=== PATIENT | female | born 1995 | race African-American/Black ===

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

== ENCOUNTER 2017-07-18 20:09 | Emergency (ER) | payer MEDICAID, OTHER ==
[~2017-07-18] VITALS: Ht 149.9 cm; Wt 55.0 kg
[~2017-07-18 20:09] MED LIST changes: -HYDR-3533 PO; +PERC5TAB12 PO
[2017-07-18 20:12] VITALS: BP 107/66; PULSE 78; RESP 16; TEMP 98.1; O2SAT 99
[2017-07-19] MEDS ORDERED: METR-1 PO (21:10)
== END 2017-07-18 22:10 | disposition left against medical advice (07) ==
LOC: NED 20:09
DX: N94.9 Unspecified condition associated with female genital organs and menstrual cycle (principal)
CPT/HCPCS: 99281

== ENCOUNTER 2017-07-19 18:57 | Emergency (ER) | payer MEDICAID ==
[~2017-07-19] VITALS: Ht 149.9 cm; Wt 55.0 kg
[2017-07-19 18:57] VITALS: BP 124/76; PULSE 66; RESP 16; TEMP 98.5; O2SAT 100
--- NOTE | 2017-07-19 20:19 | PD ---
HPI Chief Complaint: Heel Cutter Problem/Complaint Time Seen by Provider: 20:01 Travel History International Travel<30 days: No Contact w/Intl Traveler<30days: No Traveled to known affect area: No History of Present Illness HPI 22-year-old female with no significant medical history presents to emergency department for evaluation of vaginal itching and discharge worsening over the last week. Patient states she has 2 sexual partners. She does not use reduction with either of them. She reports mild lower abdominal pain. No urinary symptoms. No other symptoms to report. PFSH Past Medical History Medical History: Denies Significant Hx Weight (Kg): 3 Cardiovascular Problems: No Developmental Delay: No Diabetes: No Diminished Hearing: No Gastrointestinal Disorders: Yes ("gallstones") Headaches: Yes (at times had a head injury with sutures December 2013) Psychiatric: Yes Immunizations Current: Yes Seizures: No Tetanus Vaccination: < 5 Years Influenza Vaccination: Yes ?: Not LMP: 07/15/17 Menopausal: No : 2 Para: 1 Miscarriage: 1 Past Surgical History Cholecystectomy: Yes Other Surgery: No Social History Alcohol Use: Yes Tobacco Use: Yes Substance Use: No Allergies-Medications (Allergen,Severity, Reaction): Coded Allergies: No Known Allergies (Verified , 07/19/17) Reported Meds & Prescriptions Reported Meds & Active Scripts Active Percocet (Oxycodone-Acetaminophen) 5-325 mg Tab 1 Tab PO Q4H PRN Review of Systems Except as stated in HPI: all other systems reviewed are Neg Physical Exam Narrative GENERAL: Well-nourished female patient, in no acute distress SKIN: Focused skin assessment warm/dry. HEAD: Atraumatic. Normocephalic. EYES: Pupils equal and round. No scleral icterus. No injection or drainage. ENT: No nasal bleeding or discharge. Mucous membranes pink and moist. NECK: Trachea midline. No JVD. CARDIOVASCULAR: Regular rate and rhythm. No murmur appreciated. RESPIRATORY: No accessory muscle use. Clear to auscultation. Breath sounds equal bilaterally. GASTROINTESTINAL: Abdomen soft, non-tender, nondistended. Hepatic and splenic margins not palpable. GENITOURINARY: Normal external genitalia without lesions or erythema. Vaginal vault thick white malodorous discharge. Cervical os was closed with white drainage. No cervical motion tenderness. Uterus nontender and nonenlarged. Bilateral adnexa nontender without masses. MUSCULOSKELETAL: No obvious deformities. No clubbing. No cyanosis. No edema. NEUROLOGICAL: Awake and alert. No obvious cranial nerve deficits. Motor grossly within normal limits. Normal speech. Data Data Last Documented VS Vital Signs Date Time Temp Pulse Resp B/P (MAP) Pulse Ox O2 Delivery O2 Flow Rate FiO2 07/19/17 18:57 98.5 66 16 124/76 (92) 100 Room Air Orders Orders Ceftriaxone Inj (Rocephin Inj) (07/19/17 20:30) Azithromycin (Zithromax) (07/19/17 20:30) Lidocaine 1% Inj (50 Ml) (Xylocaine 1% I (07/19/17 20:30) Wet Prep Profile (07/19/17 20:20) Urinalysis - C+S If Indicated (07/19/17 20:20) Gc And Chlamydia Pcr (07/19/17 20:20) Ed Urine Pregnancytest Poc (07/19/17 20:21) Lidocaine Pf 1% Inj (Xylocaine-Mpf 1% In (07/19/17 20:25) Urine Culture (07/19/17 20:00) Labs Laboratory Tests Test 07/19/17 20:00 07/19/17 20:25 Urine Color YELLOW Urine Turbidity HAZY Urine pH 6.0 Urine Specific Vinson 1.035 Urine Protein 30 mg/dL Urine Glucose (UA) NEG mg/dL Urine Ketones 10 mg/dL Urine Occult Blood NEG Urine Nitrite NEG Urine Bilirubin NEG Urine Urobilinogen 4.0 MG/DL Urine Leukocyte Esterase LARGE Urine RBC 14 /hpf Urine WBC 23 /hpf Urine Squamous Epithelial Cells 21 /hpf Urine Amorphous Sediment RARE Urine Bacteria FEW /hpf Urine Mucus MANY /lpf Microscopic Urinalysis Comment CULTURE INDICATED Clue Cells (Wet Prep) PRESENT Vaginal Trichomonas (Wet Prep) NONE SEEN Vaginal Yeast (Wet Prep) NONE SEEN MDM Medical Decision Making Medical Screen Exam Complete: Yes Emergency Medical Condition: Yes Medical Record Reviewed: Yes Differential Diagnosis BV versus STD versus UTI versus PID Narrative Course 22 year-old female presents to the emergency department for evaluation of vaginal itching and discharge. Patient does have a thick white-yellow discharge in her vaginal vault. No CMT. Patient does have 2 sexual partners and does not utilize, prophylaxis. She'll be treated per [facility]. Blood prepped and show clue cells. She'll be treated for BV as well. She is counseled on safe sex practices. Encouraged to follow-up with gynecology. She agrees to return immediately with any acute worsening of symptoms.. Diagnosis Primary Impression: Bacterial vaginosis Additional Impression: Vaginal discharge Referrals: [facility] [employer] Superintendent Primary Care Physician Patient Instructions: Bacterial Vaginosis (ED), General Instructions, Safe Sex (ED) Additional Instructions: It is important that you utilize condom prophylaxis Follow-up with a outpatient clerk You have been treated for gonorrhea and chlamydia. You'll receive a letter in the mail if this is indeed positive. You have not been tested for any other STDs Return immediately to the emergency department with any acute worsening of symptoms. Med/Other Pt SpecificInfo: Prescription(s) given Scripts Metronidazole (Flagyl) 500 Mg Tab 500 MG PO BID for Infection for 7 Days, #14 TAB 0 Refills Prov: Elsa Red 07/19/17 Disposition: 01 DISCHARGE HOME Condition: Stable Elsa Red Jul 19, 2017 20:19
[2017-07-19] MEDS ORDERED: LIDOCAINE HCL 1% PF 30 ML VIAL ONE (20:25)
[2017-07-19] MEDS ORDERED: cefTRIAXone 250 MG VIAL IM ONE (20:30)
[2017-07-19] MEDS ORDERED: AZITHROMYCIN 250 MG TAB PO ONE (20:30)
[2017-07-19] MEDS ORDERED: LIDOCAINE HCL 1% 50 ML VIAL XX ONE (20:30)
[2017-07-19 20:55] LABS: BACTERIA, URINE FEW /hpf; BLOOD, URINE NEG (NEG); COMMENT (UR) CULTURE INDICATED; CULTURE IF INDICATED CULTURE INDICATED; GLUCOSE,URINE NEG (NEG); KETONE, URINE 10 mg/dL (NEG); MUCUS URINE MANY /lpf (OCC); NITRITE,URINE NEG (NEG); SQUAMOUS EPITHELIAL CELL URINE 21 /hpf (0-5); URINE COLOR YELLOW (YELLW/STRAW)
[2017-07-19] MEDS ORDERED: METR-1 PO (21:10)
[2017-07-19 23:08] LABS: CHLAMYDIA PCR NOT DETECTED (NOT DETECT); NEISSERIA PCR NOT DETECTED (NOT DETECT)
== END 2017-07-19 21:40 | disposition home or self-care (01) ==
LOC: NEPD 18:57
DX: N76.0 Acute vaginitis (principal); B96.89 Other specified bacterial agents as the cause of diseases classified elsewhere; Z72.0 Tobacco use
CPT/HCPCS: 81001; 84703; 87086; 87210; 87491; 87591; 96372; 99284; J0696

== ENCOUNTER 2018-01-30 12:32 | Observation (INO) | payer MEDICAID ==
[~2018-01-30] VITALS: Ht 149.9 cm; Wt 55.0 kg
[~2018-01-30 12:32] MED LIST changes: +METR-1 PO
[2018-01-30] MEDS ORDERED: IOHEXOL 350 MG/ML 10 ML VIAL (for RAD DIAG) IVCONTRAST ONE (12:33)
[2018-01-30 12:43] VITALS: BP 128/72; PULSE 82; RESP 18; TEMP 98.2; O2SAT 100
[2018-01-30 13:22] LABS: AUTOMATED NEUTROPHIL # 4.4 TH/MM3 (1.8-7.7); BASOPHIL # 0.1 TH/MM3 (0-0.2); BASOPHIL % 2.2 % (0.0-2.0); EOSINOPHIL # 0.2 TH/MM3 (0-0.4); EOSINOPHIL % 3.5 % (0.0-4.0); HEMATOCRIT 40.7 % (35.0-46.0); LYMPH % 23.7 % (9.0-44.0); LYMPHOCYTE # 1.6 TH/MM3 (1.0-4.8); MEAN CELL VOLUME 87.8 FL (80.0-100.0); MEAN CORPUSCULAR HEMOGLOBIN 30.2 PG (27.0-34.0); MEAN CORPUSCULAR HGB CONC 34.4 % (32.0-36.0); MEAN PLATELET VOLUME 8.3 FL (7.0-11.0); MONO % 5.6 % (0.0-8.0); MONOCYTE # 0.4 TH/MM3 (0-0.9); PLATELET COUNT 255 TH/MM3 (150-450); RED BLOOD COUNT 4.63 MIL/MM3 (4.00-5.30); RED CELL DISTRIBUTION WIDTH 13.5 % (11.6-17.2); WHITE BLOOD COUNT 6.7 TH/MM3 (4.0-11.0)
[2018-01-30 13:38] LABS: ALBUMIN 3.9 GM/DL (3.4-5.0); ALT (GPT) 20 U/L (9-42); AST (GOT) 13 U/L (16-38); BICARBONATE 28.2 MEQ/L (21.0-32.0); BLOOD UREA NITROGEN 7 MG/DL (7-18); CALCIUM 8.5 MG/DL (8.5-10.1); CHLORIDE 108 MEQ/L (98-107); CREATININE 0.76 MG/DL (0.50-1.00); GLOMERULAR FILTRATION RATE 117 ML/MIN (>89); GLUCOSE,RANDOM 73 MG/DL (74-106); SODIUM (NA) 143 MEQ/L (136-145)
[2018-01-30 13:42] LABS: ALKALINE PHOSPHATASE 70 U/L (45-117); TOTAL BILIRUBIN ADULT 0.4 MG/DL (0.2-1.0); TOTAL PROTEIN 7.2 GM/DL (6.4-8.2); TROPONIN I LESS THAN 0.02 NG/ML (0.02-0.05)
[2018-01-30] MEDS ORDERED: KETOROLAC TROMETHAMINE 30 MG/ML (IVP) VIAL IV PUSH ONE (13:45)
[2018-01-30] MEDS ORDERED: ONDANSETRON HCL 4 MG/2 ML VIAL IV PUSH ONE (13:45)
--- NOTE | 2018-01-30 13:57 | PD ---
HPI Chief Complaint: Chest Pain Time Seen by Provider: 13:25 Travel History International Travel<30 days: No Contact w/Intl Traveler<30days: No Traveled to known affect area: No History of Present Illness HPI 22-year-old female that presents to the ED for evaluation of chest pain and abdominal pain. Per patient she has epigastric abdominal pain that she has had for the past 3 or 4 days but has worsened for the past 2 days. Per patient comes in waves like a band. Per patient he moves to her chest as well. She denies any history of this in the past. She does have a history of gallbladder disease and had her gallbladder removed about 2 years ago. She has had no issues since. She denies any vaginal discharge or some blood as she is currently on her menses. Per patient she does get short of breath when she gets the pain. She denies any urinary or bowel movement issues. She states feeling nauseous and loss of appetite. Nothing seems to make the pain better or worse. Patient comes on its own. Most of the pain is to the abdomen and the chest. Denies take any blood thinners. No recent travel. No injury or trauma. Pain per patient is 7 out of 10. Has not seen anybody for this. PFSH Past Medical History Cardiovascular Problems: No Developmental Delay: No Diabetes: No Diminished Hearing: No Gastrointestinal Disorders: Yes ("gallstones") Headaches: Yes (at times had a head injury with sutures December 2013) Psychiatric: Yes Immunizations Current: Yes Seizures: No ?: Not LMP: on now Menopausal: No : 2 Para: 1 Miscarriage: 1 Past Surgical History Cholecystectomy: Yes Other Surgery: No Social History Alcohol Use: Yes Tobacco Use: Yes Substance Use: No Allergies-Medications (Allergen,Severity, Reaction): Coded Allergies: No Known Allergies (Verified Allergy, Unknown, 01/30/18) Reported Meds & Prescriptions Reported Meds & Active Scripts Active Percocet (Oxycodone-Acetaminophen) 5-325 mg Tab 1 Tab PO Q4H PRN Review of Systems Except as stated in HPI: all other systems reviewed are Neg Physical Exam Narrative GENERAL: SKIN: Warm and dry. HEAD: Atraumatic. Normocephalic. EYES: Pupils equal and round. No scleral icterus. No injection or drainage. ENT: No nasal bleeding or discharge. Mucous membranes pink and moist. Tongue is midline. No uvula deviation. NECK: Trachea midline. No JVD. CARDIOVASCULAR: Regular rate and rhythm. No murmurs, S3, S4. RESPIRATORY: No accessory muscle use. Clear to auscultation. Breath sounds equal bilaterally. GASTROINTESTINAL: Abdomen soft, tender in the epigastric area as well as the right upper quadrant and left upper quadrant, nondistended. Hepatic and splenic margins not palpable. MUSCULOSKELETAL: Extremities without clubbing, cyanosis, or edema. No obvious deformities. Full range of motion of the upper and lower extremities bilaterally. 2+ pulses bilaterally. NEUROLOGICAL: Awake and alert. No obvious cranial nerve deficits. Motor grossly within normal limits. Five out of 5 muscle strength in the arms and legs. Normal speech. PSYCHIATRIC: Appropriate mood and affect; insight and judgment normal. Data Data Last Documented VS Vital Signs Date Time Temp Pulse Resp B/P (MAP) Pulse Ox O2 Delivery O2 Flow Rate FiO2 01/30/18 16:48 50 99 Room Air 01/30/18 16:44 15 01/30/18 12:43 98.2 128/72 (90) Orders Orders Electrocardiogram (01/30/18 12:45) Ckmb (Isoenzyme) Profile (01/30/18 12:45) Complete Blood Count With Diff (01/30/18 12:45) Comprehensive Metabolic Panel (01/30/18 12:45) Magnesium (Mg) (01/30/18 12:45) Troponin I (01/30/18 12:45) Lipase (01/30/18 12:45) Chest, Pa & Lat (01/30/18 12:45) Ed Urine Pregnancytest Poc (01/30/18 12:45) Urinalysis - C+S If Indicated (01/30/18 13:20) Ct Abd/Pel W Iv Contrast(Rout) (01/30/18 ) Ketorolac Inj (Toradol Inj) (01/30/18 13:45) Ondansetron Inj (Zofran Inj) (01/30/18 13:45) D-Dimer (01/30/18 13:35) Iv Access Insert/Monitor (01/30/18 13:38) Ecg Monitoring (01/30/18 13:38) Oximetry (01/30/18 13:38) CKMB (01/30/18 13:05) CKMB% (01/30/18 13:05) Ct Pulmonary Angiogram (01/30/18 ) Iohexol 350 Inj (Omnipaque 350 Inj) (01/30/18 12:33) Admit Order (Ed Use Only) (01/30/18 18:20) Activity Bed Rest With Brp (01/30/18 18:20) Vital Signs (Adult) Q4H (01/30/18 18:20) Cardiac Rhythm .As Directed (01/30/18 18:20) Notify Dr: Other .PRN (01/30/18 18:20) Notify DrFadia Parameters (01/30/18 18:20) Resp Oxygen Nasal Cannula (01/30/18 ) Ckmb (Isoenzyme) Profile (01/30/18 18:20) Ckmb (Isoenzyme) Profile (01/30/18 21:20) Troponin I (01/30/18 18:20) Troponin I (01/30/18 21:20) Electrocardiogram (01/30/18 18:20) Electrocardiogram (01/30/18 21:20) ^ Obtain (01/30/18 18:20) Sodium Chloride 0.9% Flush (Ns Flush) (01/30/18 18:30) Sodium Chloride 0.9% Flush (Ns Flush) (01/30/18 21:00) Acetaminophen (Tylenol) (01/30/18 18:30) Ondansetron Inj (Zofran Inj) (01/30/18 18:30) Dye Reel Operator / Telemetry CHANDNI.Q8H (01/30/18 18:20) Labs Laboratory Tests Test 01/30/18 13:00 01/30/18 13:05 01/30/18 15:08 Urine Color YELLOW Urine Turbidity CLEAR Urine pH 6.5 Urine Specific [place] 1.025 Urine Protein TRACE mg/dL Urine Glucose (UA) NEG mg/dL Urine Ketones NEG mg/dL Urine Occult Blood MOD Urine Nitrite NEG Urine Bilirubin NEG Urine Urobilinogen 2.0 MG/DL Urine Leukocyte Esterase SMALL Urine RBC 1 /hpf Urine WBC 1 /hpf Urine Squamous Epithelial Cells 5 /hpf Urine Bacteria RARE /hpf Urine Mucus MANY /lpf Microscopic Urinalysis Comment CULT NOT INDICATED White Blood Count 6.7 TH/MM3 Red Blood Count 4.63 MIL/MM3 Hemoglobin 14.0 GM/DL Hematocrit 40.7 % Mean Corpuscular Volume 87.8 FL Mean Corpuscular Hemoglobin 30.2 PG Mean Corpuscular Hemoglobin Concent 34.4 % Red Cell Distribution Width 13.5 % Platelet Count 255 TH/MM3 Mean Platelet Volume 8.3 FL Neutrophils (%) (Auto) 65.0 % Lymphocytes (%) (Auto) 23.7 % Monocytes (%) (Auto) 5.6 % Eosinophils (%) (Auto) 3.5 % Basophils (%) (Auto) 2.2 % Neutrophils # (Auto) 4.4 TH/MM3 Lymphocytes # (Auto) 1.6 TH/MM3 Monocytes # (Auto) 0.4 TH/MM3 Eosinophils # (Auto) 0.2 TH/MM3 Basophils # (Auto) 0.1 TH/MM3 CBC Comment DIFF FINAL Differential Comment Blood Urea Nitrogen 7 MG/DL Creatinine 0.76 MG/DL Random Glucose 73 MG/DL Total Protein 7.2 GM/DL Albumin 3.9 GM/DL Calcium Level 8.5 MG/DL Magnesium Level 2.0 MG/DL Alkaline Phosphatase 70 U/L Aspartate Amino Transf (AST/SGOT) 13 U/L Alanine Aminotransferase (ALT/SGPT) 20 U/L Total Bilirubin 0.4 MG/DL Sodium Level 143 MEQ/L Potassium Level 3.6 MEQ/L Chloride Level 108 MEQ/L Carbon Dioxide Level 28.2 MEQ/L Anion Gap 7 MEQ/L Estimat Glomerular Filtration Rate 117 ML/MIN Total Creatine Kinase 102 U/L Creatine Kinase MB 0.9 NG/ML Troponin I LESS THAN 0.02 NG/ML Lipase 77 U/L D-Dimer Quantitative (PE/DVT) 1.49 MG/L FEU [facility] Medical Decision Making Medical Screen Exam Complete: Yes Emergency Medical Condition: Yes Medical Record Reviewed: Yes Interpretation(s) CBC & BMP Diagram 01/30/18 13:05 Total Protein 7.2, Albumin 3.9, Calcium Level 8.5, Magnesium Level 2.0, Alkaline Phosphatase 70, Aspartate Amino Transf (AST/SGOT) 13 L, Alanine Aminotransferase (ALT/SGPT) 20, Total Bilirubin 0.4 Troponin and CK-MB negative. D-dimer positive. Last Impressions Chest X-Ray 01/30/18 1245 Signed Impressions: Service Date/Time: Tuesday, January 30, 2018 13:49 - CONCLUSION: No acute disease. Jonatan Melton MD CT Angiography 01/30/18 0000 Signed Impressions: Service Date/Time: Tuesday, January 30, 2018 16:53 - CONCLUSION: No acute disease. No evidence of acute pulmonary emboli or acute cardio pulmonary process. Wilberto Stafford MD Abdomen/Pelvis CT 01/30/18 0000 Signed Impressions: Service Date/Time: Tuesday, January 30, 2018 16:53 - CONCLUSION: 1. Uterine and parametrial prominent vascularity which can be seen in other congestion syndrome. 2. 2.3 cm left ovarian cyst. 3. No other significant abnormality. Wilberto Stafford MD EKG shows St depression and t wave inversion in a few leads read by me and my attending. No previous EKG. Differential Diagnosis Acute abdomen versus pancreatitis versus ACS versus costochondritis versus PE versus gastritis versus gastroenteritis versus pneumonia Narrative Course 22-year-old female that presents to the ED for evaluation of abdominal pain and chest pain. Patient was properly examined and was found to have signs and symptoms unclear etiology. Labs and imaging order. IV medications given. Labs and imaging showed positive d-dimer. CTs were done and were essentially unremarkable other than for what appears to be a cyst to her ovary as well as abnormal EKG. My attending spoke with the patient and recommended speaking with cardiology. Dr. Griffin recommend that the patient be admitted to the chest pain center for serial enzymes and possibly an echo to further evaluate why she is having an abnormality in her EKG. there is no previous EKG and it is unclear if this is new or old. Patient still complaining of some chest pain. Patient was told this and agrees with admission. Patient was admitted to the chest pain center by me. Diagnosis Primary Impression: Chest pain Qualified Codes: R07.9 - Chest pain, unspecified Admitting Information Admitting Physician Requests: Tommy Lugo Jan 30, 2018 13:57
--- NOTE | 2018-01-30 14:08 | RADRPT ---
EXAM DATE/TIME: 01/30/2018 13:49 [facility] COMPARISON: No previous studies available for comparison. INDICATIONS : Chest pain. MEDICAL HISTORY : Cholelithiasis. SURGICAL HISTORY : Cholecystectomy. ENCOUNTER: Initial ACUITY: 3 days PAIN SCORE: 7/10 LOCATION: Bilateral chest FINDINGS: PA and lateral views of the chest demonstrate the lungs to be symmetrically aerated without evidence of mass, infiltrate or effusion. The cardiomediastinal contours are unremarkable. Osseous structure s are intact. CONCLUSION: No acute disease. Jonatan Melton MD on January 30, 2018 at 14:06 Board Certified Radiologist. This report was verified electronically.
[2018-01-30 14:14] LABS: BACTERIA, URINE RARE /hpf; BILIRUBIN, URINE NEG (NEG); BLOOD, URINE MOD (NEG); GLUCOSE,URINE NEG (NEG); KETONE, URINE NEG (NEG); MUCUS URINE MANY /lpf (OCC); NITRITE,URINE NEG (NEG); PH, URINE 6.5 (5.0-8.5); SQUAMOUS EPITHELIAL CELL URINE 5 /hpf (0-5); URINE COLOR YELLOW (YELLW/STRAW); URINE LEUKOCYTE ESTERASE SMALL (NEG)
[2018-01-30 16:44] VITALS: PULSE 50; RESP 15; O2SAT 99
--- NOTE | 2018-01-30 17:22 | RADRPT ---
EXAM DATE/TIME: 01/30/2018 16:53 [facility] COMPARISON: No previous studies available for comparison. INDICATIONS : Chest pain with nausea. IV CONTRAST: 74 cc Omnipaque 350 (iohexol) IV ; Cumulative dose for multiple exams. RADIATION DOSE: 13.24 CTDIvol (mGy) MEDICAL HISTORY : None SURGICAL HISTORY : Cholecystectomy. ENCOUNTER: Initial ACUITY: 2 days PAIN SCALE: 7/10 LOCATION: Bilateral chest TECHNIQUE: Volumetric scanning of the chest was performed using a pulmonary embolism protocol MIP images were re constructed. Using automated exposure control and adjustment of the mA and/or kV according to patien t size, radiation dose was kept as low as reasonably achievable to obtain optimal diagnostic quality images. DICOM format image data is available electronically for review and comparison. Follow-up recommendations for detected pulmonary nodules are based at a minimum on nodule size and pa tient risk factors according to Fleischner Society Guidelines. FINDINGS: PULMONARY ARTERIES: No filling defects are seen in the pulmonary arteries through the segmental level. LUNGS: There is no consolidation or pneumothorax . No concerning pulmonary nodule is visualized. PLEURAE: There is no pleural thickening or pleural effusion. MEDIASTINUM: There is good visualization of the great vessels of the middle mediastinum. No evidence of mediastin al or hilar adenopathy/mass. MUSCULOSKELETAL: Within normal limits for patient age. MISCELLANEOUS: The visualized upper abdominal organs demonstrate no acute abnormality. Post cholecystectomy clips ar e noted. CONCLUSION: No acute disease. No evidence of acute pulmonary emboli or acute cardio pulmonary process. Wilberto Stafford MD on January 30, 2018 at 17:19 Board Certified Radiologist. This report was verified electronically.
--- NOTE | 2018-01-30 17:27 | RADRPT ---
EXAM DATE/TIME: 01/30/2018 16:53 [facility] COMPARISON: No previous studies available for comparison. INDICATIONS : Patient complains of abdominal pain with nausea. IV CONTRAST: 74 cc Omnipaque 350 (iohexol) IV ; Cumulative dose for multiple exams. ORAL CONTRAST: No oral contrast ingested. RADIATION DOSE: 16.19 CTDIvol (mGy) MEDICAL HISTORY : None SURGICAL HISTORY : Cholecystectomy. ENCOUNTER: Initial ACUITY: 1 day PAIN SCALE: 7/10 LOCATION: abdomen TECHNIQUE: Volumetric scanning of the abdomen and pelvis was performed. Using automated exposure control and ad justment of the mA and/or kV according to patient size, radiation dose was kept as low as reasonably achievable to obtain optimal diagnostic quality images. DICOM format image data is available electro nically for review and comparison. FINDINGS: LOWER LUNGS: The visualized lower lungs are clear. LIVER: Homogeneous density without lesion. There is no dilation of the biliary tree. Post cholecystectomy c lips are noted. SPLEEN: Normal size without lesion. PANCREAS: Within normal limits. KIDNEYS: Normal in size and shape. There is no mass, stone or hydronephrosis. ADRENAL GLANDS: Within normal limits. VASCULAR: There is no aortic aneurysm. BOWEL/MESENTERY: The stomach, small bowel, and colon demonstrate no acute abnormality. There is no free intraperitone al air or fluid. ABDOMINAL WALL: Within normal limits. RETROPERITONEUM: There is no lymphadenopathy. BLADDER: No wall thickening or mass. REPRODUCTIVE: Prominent dilated uterine and parametrial vascular structures are noted. A 2.3 cm cyst is identified in the left adnexa. INGUINAL: There is no lymphadenopathy or hernia. MUSCULOSKELETAL: Within normal limits for patient age. CONCLUSION: 1. Uterine and parametrial prominent vascularity which can be seen in other congestion syndrome. 2. 2.3 cm left ovarian cyst. 3. No other significant abnormality. Wilberto Stafford MD on January 30, 2018 at 17:21 Board Certified Radiologist. This report was verified electronically.
--- NOTE | 2018-01-30 18:16 | PD ---
Physical Exam Narrative GENERAL: 22-year-old female in no apparent distress SKIN: Focused skin assessment warm/dry. HEAD: Atraumatic. Normocephalic. EYES: Pupils equal and round. No scleral icterus. No injection or drainage. ENT: No nasal bleeding or discharge. Mucous membranes pink and moist. NECK: Trachea midline. CARDIOVASCULAR: Regular rate and rhythm. No murmur appreciated. RESPIRATORY: No accessory muscle use. Clear to auscultation. Breath sounds equal bilaterally. MUSCULOSKELETAL: No obvious deformities. No clubbing. No cyanosis. No edema. NEUROLOGICAL: Awake and alert. No obvious cranial nerve deficits. Motor grossly within normal limits. Normal speech. PSYCHIATRIC: Appropriate mood and affect; insight and judgment normal. Data Data Last Documented VS Vital Signs Date Time Temp Pulse Resp B/P (MAP) Pulse Ox O2 Delivery O2 Flow Rate FiO2 01/30/18 16:48 50 99 Room Air 01/30/18 16:44 15 01/30/18 12:43 98.2 128/72 (90) Orders Orders Electrocardiogram (01/30/18 12:45) Ckmb (Isoenzyme) Profile (01/30/18 12:45) Complete Blood Count With Diff (01/30/18 12:45) Comprehensive Metabolic Panel (01/30/18 12:45) Magnesium (Mg) (01/30/18 12:45) Troponin I (01/30/18 12:45) Lipase (01/30/18 12:45) Chest, Pa & Lat (01/30/18 12:45) Ed Urine Pregnancytest Poc (01/30/18 12:45) Urinalysis - C+S If Indicated (01/30/18 13:20) Ct Abd/Pel W Iv Contrast(Rout) (01/30/18 ) Ketorolac Inj (Toradol Inj) (01/30/18 13:45) Ondansetron Inj (Zofran Inj) (01/30/18 13:45) D-Dimer (01/30/18 13:35) Iv Access Insert/Monitor (01/30/18 13:38) Ecg Monitoring (01/30/18 13:38) Oximetry (01/30/18 13:38) CKMB (01/30/18 13:05) CKMB% (01/30/18 13:05) Ct Pulmonary Angiogram (01/30/18 ) Iohexol 350 Inj (Omnipaque 350 Inj) (01/30/18 12:33) Labs Laboratory Tests Test 01/30/18 13:00 01/30/18 13:05 01/30/18 15:08 Urine Color YELLOW Urine Turbidity CLEAR Urine pH 6.5 Urine Specific [place] 1.025 Urine Protein TRACE mg/dL Urine Glucose (UA) NEG mg/dL Urine Ketones NEG mg/dL Urine Occult Blood MOD Urine Nitrite NEG Urine Bilirubin NEG Urine Urobilinogen 2.0 MG/DL Urine Leukocyte Esterase SMALL Urine RBC 1 /hpf Urine WBC 1 /hpf Urine Squamous Epithelial Cells 5 /hpf Urine Bacteria RARE /hpf Urine Mucus MANY /lpf Microscopic Urinalysis Comment CULT NOT INDICATED White Blood Count 6.7 TH/MM3 Red Blood Count 4.63 MIL/MM3 Hemoglobin 14.0 GM/DL Hematocrit 40.7 % Mean Corpuscular Volume 87.8 FL Mean Corpuscular Hemoglobin 30.2 PG Mean Corpuscular Hemoglobin Concent 34.4 % Red Cell Distribution Width 13.5 % Platelet Count 255 TH/MM3 Mean Platelet Volume 8.3 FL Neutrophils (%) (Auto) 65.0 % Lymphocytes (%) (Auto) 23.7 % Monocytes (%) (Auto) 5.6 % Eosinophils (%) (Auto) 3.5 % Basophils (%) (Auto) 2.2 % Neutrophils # (Auto) 4.4 TH/MM3 Lymphocytes # (Auto) 1.6 TH/MM3 Monocytes # (Auto) 0.4 TH/MM3 Eosinophils # (Auto) 0.2 TH/MM3 Basophils # (Auto) 0.1 TH/MM3 CBC Comment DIFF FINAL Differential Comment Blood Urea Nitrogen 7 MG/DL Creatinine 0.76 MG/DL Random Glucose 73 MG/DL Total Protein 7.2 GM/DL Albumin 3.9 GM/DL Calcium Level 8.5 MG/DL Magnesium Level 2.0 MG/DL Alkaline Phosphatase 70 U/L Aspartate Amino Transf (AST/SGOT) 13 U/L Alanine Aminotransferase (ALT/SGPT) 20 U/L Total Bilirubin 0.4 MG/DL Sodium Level 143 MEQ/L Potassium Level 3.6 MEQ/L Chloride Level 108 MEQ/L Carbon Dioxide Level 28.2 MEQ/L Anion Gap 7 MEQ/L Estimat Glomerular Filtration Rate 117 ML/MIN Total Creatine Kinase 102 U/L Creatine Kinase MB 0.9 NG/ML Troponin I LESS THAN 0.02 NG/ML Lipase 77 U/L D-Dimer Quantitative (PE/DVT) 1.49 MG/L FEU [facility] Supervised Visit with PERI: Yes Interpretation(s) CBC & BMP Diagram 01/30/18 13:05 Total Protein 7.2, Albumin 3.9, Calcium Level 8.5, Magnesium Level 2.0, Alkaline Phosphatase 70, Aspartate Amino Transf (AST/SGOT) 13 L, Alanine Aminotransferase (ALT/SGPT) 20, Total Bilirubin 0.4 Last 24 hours Impressions Chest X-Ray 01/30/18 1245 Signed Impressions: Service Date/Time: Tuesday, January 30, 2018 13:49 - CONCLUSION: No acute disease. Jonatan Melton MD CT Angiography 01/30/18 0000 Signed Impressions: Service Date/Time: Tuesday, January 30, 2018 16:53 - CONCLUSION: No acute disease. No evidence of acute pulmonary emboli or acute cardio pulmonary process. Wilberto Stafford MD Abdomen/Pelvis CT 01/30/18 0000 Signed Impressions: Service Date/Time: Tuesday, January 30, 2018 16:53 - CONCLUSION: 1. Uterine and parametrial prominent vascularity which can be seen in other congestion syndrome. 2. 2.3 cm left ovarian cyst. 3. No other significant abnormality. Wilberto Stafford MD Narrative Course I, Dr. sutherland, have reviewed the advance practice practitioner's documentation and am in agreement, met with the patient face to face, made the diagnosis, and the medical decision making was done by me. *My assessment and Findings: 22-year-old female notes central chest pressure and upper abdominal pain that is been intermittent over the past couple days. CT and blood work without emergent findings. Patient's EKG shows T-wave inversion in V1 V2 with inverted P wave on initial EKG. EKG was repeated with a different machine and still had these findings. I watched another tech to the EKG and this was done correctly and was still showing these findings. Patient states she has family history with her grandparents with heart disease but she does not know when or what it was. She denies any prior heart issues and there is no prior EKG on file. Will discuss with cardiology patient agrees to admit Physician Communication Physician Communication Dr. gamez recommends chest pain observation for monitoring and possible echocardiogram Diagnosis Primary Impression: Chest pain Qualified Codes: R07.9 - Chest pain, unspecified Admitting Information Admitting Physician Requests: Observation Lucinda Sutherland MD Jan 30, 2018 18:16
[2018-01-30] MEDS ORDERED: ONDANSETRON HCL 4 MG/2 ML VIAL IV PUSH PRN (18:30)
[2018-01-30] MEDS ORDERED: SODIUM CHLORIDE 0.9% FLUSH 10 ML FLUSH IV FLUSH PRN (18:30)
[2018-01-30] MEDS ORDERED: ACETAMINOPHEN 500 MG CPLT PO PRN (18:30)
[2018-01-30 19:15] VITALS: BP 115/77; PULSE 50; RESP 15; O2SAT 99
[2018-01-30 19:33] LABS: TROPONIN I LESS THAN 0.02 NG/ML (0.02-0.05)
[2018-01-30 20:00] VITALS: PULSE 47
[2018-01-30 20:52] VITALS: BP 160/76; PULSE 69; RESP 16; TEMP 96.9; O2SAT 97
[2018-01-30] MEDS: SODIUM CHLORIDE 0.9% FLUSH 10 ML FLUSH IV FLUSH SCH (22:30)
[2018-01-30 22:55] LABS: TROPONIN I LESS THAN 0.02 NG/ML (0.02-0.05)
[2018-01-31] VITALS (7 sets, daily range): BP systolic 93–105; BP diastolic 55–67; PULSE 49–56; RESP 16–18; TEMP 97.7–98.2; O2SAT 96–99
--- NOTE | 2018-01-31 07:53 | HHI.HP ---
HPI Primary Care Physician No Primary Care Physician Chief Complaint Chest and abdominal pain History of Present Illness This is a 22-year-old female that presents to ED with the complaint of chest and abdominal pain that been intermittently present for the last 3 days. Lasts 20-30 minutes. Both discomfort seem to be associated with each other. She is found nothing to bring on the discomforts. Nothing to worsen or improve the discomfort. States they go away on their own. She has been little nauseous with them. She has felt a little short of breath with them. No diaphoresis. Denies history of CAD. Denies chance of being . Denies hypertension, hyperlipidemia, diabetes. States she smokes a couple cigarettes a day. Has never smoked more than that. Currently denies chest or abdominal discomfort. Review of Systems General: Patient denies fevers, chills, and recent travel. HEENT: Patient denies headache, sore throat, difficulty swallowing. Cardiovascular: Has the chest discomfort as mentioned above. Denies sensation of heart beating rapidly or irregularly. No syncope. Denies diaphoresis. Respiratory: She has been a little short of breath. Denies shortness of breath or inspirational chest discomfort. Denies coughing wheezing or hemoptysis. GI: Complained of nausea without emesis. Complains of abdominal pain and points to epigastric region. Patient denies diarrhea, constipation, bloody stools. Musculoskeletal: Patient denies joint pain or edema. Denies calf pain or edema. Neurovascular: Patient denies numbness, tingling, weakness in extremities. Denies headache. Genitourinary: Denies frequent or painful urination. Denies vaginal discharge or bleeding. Endocrine: Denies polyuria and polydipsia. Hematologic: Denies easy bruising. Skin: Denies rash or itching. Past Family Social History Allergies: Coded Allergies: No Known Allergies (Verified Allergy, Unknown, 01/30/18) Past Medical History Denies hypertension, hyperlipidemia, diabetes, and CAD. Status post cholecystectomy October 2016. Past Surgical History Cholecystectomy October 2016. Reported Medications Reported Meds & Active Scripts Active No Active Prescriptions or Reported Medications Active Ordered Medications Current Medications Medications (Trade) Dose Ordered Sig/Titi Route Start Time Stop Time Status Last Admin (NS Flush) 2 ml UNSCH PRN IV FLUSH 01/30/18 18:30 (NS Flush) 2 ml BID IV FLUSH 01/30/18 21:00 01/30/18 22:30 (Tylenol) 500 mg Q4H PRN PO 01/30/18 18:30 (Zofran Inj) 4 mg Q6H PRN IV PUSH 01/30/18 18:30 Family History Denies family history of CAD. Social History Smokes on average a couple cigarettes a day. Denies alcohol or illicit drug use. Physical Exam Vital Signs Vital Signs Date Time Temp Pulse Resp B/P (MAP) Pulse Ox O2 Delivery O2 Flow Rate FiO2 01/31/18 07:00 50 01/31/18 04:04 49 01/31/18 03:46 97.7 54 16 93/61 (72) 96 01/31/18 00:04 97.7 52 18 96/55 (69) 99 01/31/18 00:00 51 01/30/18 20:52 96.9 69 16 160/76 (104) 97 01/30/18 20:00 47 01/30/18 19:15 50 15 115/77 (90) 99 Room Air 01/30/18 16:48 50 99 Room Air 01/30/18 16:44 50 15 99 Room Air 01/30/18 15:15 16 01/30/18 12:43 98.2 82 18 128/72 (90) 100 Physical Exam GENERAL: This is a well-nourished, well-developed patient, in no apparent distress. Patient speaks in clear complete sentences. Patient is pleasant. HEENT: Head is atraumatic and normocephalic. Neck is supple without lymphadenopathy and trachea is midline. No JVD or carotid bruits. CARDIOVASCULAR: Regular rate and rhythm without murmurs, gallops, or rubs. RESPIRATORY: Clear to auscultation. Breath sounds equal bilaterally. No wheezes , rales, or rhonchi. Chest wall is nontender. No use of accessory muscles. GASTROINTESTINAL: Some generalized tenderness more so on the epigastric region. No guarding or rebound. Abdomen is nondistended. Abdomen is soft. No obvious pulsatile mass or bruit. No CVA tenderness. Strong femoral pulses bilaterally. Normal bowel sounds in all quadrants. MUSCULOSKELETAL: Patient is moving upper and lower extremities freely. No calf tenderness or edema, no Homans sign. Strong pulses in upper and lower extremities. NEUROLOGICAL: Patient is alert and oriented. Cranial nerves 2-12 are grossly intact. No focal deficits and speech is clear. SKIN: No rash and turgor is normal. Laboratory Laboratory Tests Test 01/30/18 13:00 01/30/18 13:05 01/30/18 15:08 01/30/18 18:30 Urine Color YELLOW Urine Turbidity CLEAR Urine pH 6.5 Urine Specific [place] 1.025 Urine Protein TRACE Urine Glucose (UA) NEG Urine Ketones NEG Urine Occult Blood MOD Urine Nitrite NEG Urine Bilirubin NEG Urine Urobilinogen 2.0 Urine Leukocyte Esterase SMALL Urine RBC 1 Urine WBC 1 Urine Squamous Epithelial Cells 5 Urine Bacteria RARE Urine Mucus MANY Microscopic Urinalysis Comment CULT NOT INDICATED White Blood Count 6.7 Red Blood Count 4.63 Hemoglobin 14.0 Hematocrit 40.7 Mean Corpuscular Volume 87.8 Mean Corpuscular Hemoglobin 30.2 Mean Corpuscular Hemoglobin Concent 34.4 Red Cell Distribution Width 13.5 Platelet Count 255 Mean Platelet Volume 8.3 Neutrophils (%) (Auto) 65.0 Lymphocytes (%) (Auto) 23.7 Monocytes (%) (Auto) 5.6 Eosinophils (%) (Auto) 3.5 Basophils (%) (Auto) 2.2 Neutrophils # (Auto) 4.4 Lymphocytes # (Auto) 1.6 Monocytes # (Auto) 0.4 Eosinophils # (Auto) 0.2 Basophils # (Auto) 0.1 CBC Comment DIFF FINAL Differential Comment Blood Urea Nitrogen 7 Creatinine 0.76 Random Glucose 73 Total Protein 7.2 Albumin 3.9 Calcium Level 8.5 Magnesium Level 2.0 Alkaline Phosphatase 70 Aspartate Amino Transf (AST/SGOT) 13 Alanine Aminotransferase (ALT/SGPT) 20 Total Bilirubin 0.4 Sodium Level 143 Potassium Level 3.6 Chloride Level 108 Carbon Dioxide Level 28.2 Anion Gap 7 Estimat Glomerular Filtration Rate 117 Total Creatine Kinase 102 102 Creatine Kinase MB 0.9 0.7 Troponin I LESS THAN 0.02 LESS THAN 0.02 Lipase 77 D-Dimer Quantitative (PE/DVT) 1.49 Test 01/30/18 22:00 Total Creatine Kinase 90 Troponin I LESS THAN 0.02 Result Diagram: 01/30/18 1305 01/30/18 1305 Imaging Last 48 hours Impressions Chest X-Ray 01/30/18 1245 Signed Impressions: Service Date/Time: Tuesday, January 30, 2018 13:49 - CONCLUSION: No acute disease. Jonatan Melton MD CT Angiography 01/30/18 0000 Signed Impressions: Service Date/Time: Tuesday, January 30, 2018 16:53 - CONCLUSION: No acute disease. No evidence of acute pulmonary emboli or acute cardio pulmonary process. Wilberto Stafford MD Abdomen/Pelvis CT 01/30/18 0000 Signed Impressions: Service Date/Time: Tuesday, January 30, 2018 16:53 - CONCLUSION: 1. Uterine and parametrial prominent vascularity which can be seen in other congestion syndrome. 2. 2.3 cm left ovarian cyst. 3. No other significant abnormality. Wilberto Stafford MD Course EKGs have junctional rhythm. Caprini VTE Risk Assessment Caprini VTE Risk Assessment: No/Low Risk (score <= 1) Caprini Risk Assessment Model Point Value = 1 Point Value = 2 Point Value = 3 Point Value = 5 Age 41-60 Minor surgery BMI > 25 kg/m2 Swollen legs Varicose veins or History of unexplained or recurrent spontaneous Oral contraceptives or hormone replacement Sepsis (< 1 month) Serious lung disease, including pneumonia (< 1 month) Abnormal pulmonary function Acute myocardial infarction Congestive heart failure (< 1 month) History of inflammatory bowel disease Medical patient at bed rest Age 61-74 Arthroscopic surgery Major open surgery (> 45 min) Laparoscopic surgery (> 45 min) Malignancy Confined to bed (> 72 hours) Immobilizing plaster cast Central venous access Age >= 75 History of VTE Family history of VTE Factor V Leiden Prothrombin [id number] Lupus anticoagulant Anticardiolipin antibodies Elevated serum homocysteine Heparin-induced thrombocytopenia Other congenital or acquired thrombophilia Stroke (< 1 month) Elective arthroplasty Hip, pelvis, or leg fracture Acute spinal cord injury (< 1 month) Prophylaxis Regimen Total Risk Factor Score Risk Level Prophylaxis Regimen 0-1 Low Early ambulation 2 Moderate Order ONE of the following: *Sequential Compression Device (SCD) *Heparin 5000 units SQ BID 3-4 Higher Order ONE of the following medications: *Heparin 5000 units SQ TID *Enoxaparin/Lovenox 40 mg SQ daily (WT < 150 kg, CrCl > 30 mL/min) *Enoxaparin/Lovenox 30 mg SQ daily (WT < 150 kg, CrCl > 10-29 mL/min) *Enoxaparin/Lovenox 30 mg SQ BID (WT < 150 kg, CrCl > 30 mL/min) AND/OR *Sequential Compression Device (SCD) 5 or more Highest Order ONE of the following medications: *Heparin 5000 units SQ TID (Preferred with Epidurals) *Enoxaparin/Lovenox 40 mg SQ daily (WT < 150 kg, CrCl > 30 mL/min) *Enoxaparin/Lovenox 30 mg SQ daily (WT < 150 kg, CrCl > 10-29 mL/min) *Enoxaparin/Lovenox 30 mg SQ BID (WT < 150 kg, CrCl > 30 mL/min) AND *Sequential Compression Device (SCD) Assessment and Plan Assessment and Plan * Chest pain: Patient has had serial cardiac enzymes and EKGs for ruling out purposes. Pulmonary embolus has been ruled out. She was seen by Dr. Morrison of cardiology in the chest pain center and will undergo a Gt protocol ETT. She also complained of abdominal pain. She will need follow-up with us on an outpatient basis. Patient will be discharged home if the stress test is nonischemic. Return to ED for interval issues. * Tobacco abuse: Patient has been counseled on importance of smoking cessation. Patient is stable at this time. She is agreeable to this plan. Scott Siddiqui Jan 31, 2018 07:52
[2018-01-31] MEDS: SODIUM CHLORIDE 0.9% FLUSH 10 ML FLUSH IV FLUSH SCH (09:06)
--- NOTE | 2018-01-31 10:28 | HHI.DCPOC ---
Discharge Care Plan Diagnosis: (1) Chest pain (2) Tobacco abuse Goals to Promote Your Health * To prevent worsening of your condition and complications * To maintain your health at the optimal level Directions to Meet Your Goals Take your medications as prescribed Follow your dietary instruction Follow activity as directed Keep your appointments as scheduled Take your immunizations and boosters as scheduled If your symptoms worsen call your PCP, if no PCP go to Urgent Care Center or Emergency Room Smoking is Dangerous to Your Health. Avoid second hand smoke Call the 24-hour hour crisis hotline for domestic abuse at Scott Siddiqui Jan 31, 2018 10:28
--- NOTE | 2018-01-31 22:50 | EKG ---
Date Performed: 01/30/2018 Time Performed: 17:35:51 PTAGE: 22 years EKG: SUPRAVENTRICULAR BRADYCARDIA ABNORMAL RHYTHM ECG Compared to PREVIOUS TRACING , rate slower DOCTOR: Sim Griffin Interpretating Date/Time 01/31/2018 22:48:47
--- NOTE | 2018-01-31 23:12 | EKG ---
Date Performed: 01/30/2018 Time Performed: 12:55:01 PTAGE: 22 years EKG: JUNCTIONAL RHYTHM ABNORMAL RHYTHM ECG NO PREVIOUS TRACING DOCTOR: Sim Griffin Interpretating Date/Time 01/31/2018 23:10:56
--- NOTE | 2018-02-01 10:01 | EKG ---
Date Performed: 01/30/2018 Time Performed: 22:11:46 PTAGE: 22 years EKG: SINUS BRADYCARDIA BORDERLINE ECG PREVIOUS TRACING : 01/30/2018 17.35 Since previous tracing, no significant change noted DOCTOR: Uriel Morrison Interpretating Date/Time 02/01/2018 09:59:37
--- NOTE | 2018-02-01 10:03 | TR ---
Date Performed: 01/31/2018 Time Performed: 10:07:29 DOCTOR: Uriel Morrison DRUG LIST: CLINICAL HISTORY: REASON FOR TEST: REASON FOR ENDING: OBSERVATION: CONCLUSION: KESHA PROTOCOL. NO CP. TEST STOPPED AFTER REACHING GOAL HR SECONDARY TO LEG FATIGUE AND SOB.Maximum PX=798 % Target HR Achieved=88.0% Total Exercise Time=5:01 COMMENTS: Patient exercised using the Kesha protocol. No electrocardiographic changes were seen to suggest ischemia. Hemodynamic response to exercise was normal. No significant arrhythmia was prese nt.
== END 2018-01-31 11:43 | disposition home or self-care (01) ==
LOC: NEPC 12:32 → NEDA 18:22 → NEPHCDU 19:26
PROVIDERS: ADMIT Internal Medicine Interventional Cardiology; ATTEND Internal Medicine Interventional Cardiology
DX: R07.89 Other chest pain (principal); R06.02 Shortness of breath; R10.13 Epigastric pain; R63.0 Anorexia; R11.0 Nausea; R00.1 Bradycardia, unspecified; R94.31 Abnormal electrocardiogram [ECG] [EKG]; N83.202 Unspecified ovarian cyst, left side; F17.210 Nicotine dependence, cigarettes, uncomplicated
CPT/HCPCS: 71046; 71275; 74177; 80053; 80307; 81001; 82550; 82552; 83690; 83735; 84484; 84703; 85025; 85379; 93005; 93017; 99285; G0378; J1885; J2405; Q9967

== ENCOUNTER 2018-03-07 17:50 | Emergency (ER) | payer MEDICAID, OTHER ==
[2018-03-07 17:59] VITALS: BP 106/61; PULSE 79; RESP 16; TEMP 98; O2SAT 99
[2018-03-07 18:46] LABS: BACTERIA, URINE FEW /hpf; BILIRUBIN, URINE NEG (NEG); BLOOD, URINE NEG (NEG); GLUCOSE,URINE NEG (NEG); KETONE, URINE 40 mg/dL (NEG); MUCUS URINE MANY /lpf (OCC); NITRITE,URINE POS (NEG); SQUAMOUS EPITHELIAL CELL URINE 9 /hpf (0-5); URINE COLOR YELLOW (YELLW/STRAW); URINE LEUKOCYTE ESTERASE LARGE (NEG)
[2018-03-07] MEDS ORDERED: ONDANSETRON ODT 4 MG TAB PO ONE (19:30)
--- NOTE | 2018-03-07 20:09 | PD ---
HPI Chief Complaint: Aircrewman Problem/Complaint Time Seen by Provider: 18:50 Travel History International Travel<30 days: No Contact w/Intl Traveler<30days: No Traveled to known affect area: No History of Present Illness HPI The patient was seen and examined in the presence of the nurse. This patient complains of some nausea. No active vomiting today. No abdominal pain or pelvic pain or vaginal bleeding or diarrhea. Severity is mild. No alleviating factors. Duration 1 day PFSH Past Medical History Heart Rhythm Problems: No Cardiac Catheterization: No Cardiovascular Problems: No High Cholesterol: No Congestive Heart Failure: No Developmental Delay: No Diabetes: No Diminished Hearing: No Gastrointestinal Disorders: Yes ("gallstones") Headaches: Yes (at times had a head injury with sutures December 2013) Psychiatric: Yes Immunizations Current: Yes Seizures: No Menopausal: No : 2 Para: 1 Miscarriage: 1 Past Surgical History Cholecystectomy: Yes Coronary Artery Bypass Graft: No Other Surgery: No Social History Alcohol Use: No Tobacco Use: Yes Substance Use: No Allergies-Medications (Allergen,Severity, Reaction): Coded Allergies: No Known Allergies (Verified Allergy, Unknown, 01/30/18) Reported Meds & Prescriptions Reported Meds & Active Scripts Active No Active Prescriptions or Reported Medications Review of Systems General / Constitutional: No: Fever Eyes: No: Visual changes HENT: No: Headaches Cardiovascular: No: Chest Pain or Discomfort Respiratory: No: Shortness of Breath Gastrointestinal: Positive: Nausea, No: Abdominal Pain Genitourinary: No: Dysuria Musculoskeletal: No: Pain Skin: No Rash Neurologic: No: Weakness Psychiatric: No: Depression Endocrine: No: Polydipsia Hematologic/Lymphatic: No: Easy Bruising Physical Exam Narrative GENERAL: Well-nourished, well-developed patient in no apparent distress. SKIN: Focused skin assessment reveals no rash and nodules. Skin is Warm and dry. HEAD: Atraumatic. Normocephalic. EYES: Pupils equal and round. No scleral icterus. No injection or drainage. ENT: No nasal bleeding or discharge. Mucous membranes pink and moist. NECK: Trachea midline. No JVD. CARDIOVASCULAR: Regular rate and rhythm. No murmur appreciated. RESPIRATORY: No accessory muscle use. Clear to auscultation. Breath sounds equal bilaterally. GASTROINTESTINAL: Abdomen soft, non-tender, nondistended. Hepatic and splenic margins not palpable. MUSCULOSKELETAL: No obvious deformities. No clubbing. No cyanosis. No edema. NEUROLOGICAL: Awake and alert. No obvious cranial nerve deficits. Motor grossly within normal limits. Normal speech. PSYCHIATRIC: Appropriate mood and affect; insight and judgment normal. Data Data Last Documented VS Vital Signs Date Time Temp Pulse Resp B/P (MAP) Pulse Ox O2 Delivery O2 Flow Rate FiO2 03/07/18 17:59 98.0 79 16 106/61 (76) 99 Orders Orders Urinalysis - C+S If Indicated (03/07/18 18:00) Ed Urine Pregnancytest Poc (03/07/18 18:00) Urine Culture (03/07/18 18:05) Ondansetron Odt (Zofran Odt) (03/07/18 19:30) Labs Laboratory Tests Test 03/07/18 18:05 Urine Color YELLOW Urine Turbidity HAZY Urine pH 6.0 Urine Specific [place] 1.028 Urine Protein 30 mg/dL Urine Glucose (UA) NEG mg/dL Urine Ketones 40 mg/dL Urine Occult Blood NEG Urine Nitrite POS Urine Bilirubin NEG Urine Urobilinogen 2.0 MG/DL Urine Leukocyte Esterase LARGE Urine RBC 5 /hpf Urine WBC 9 /hpf Urine Squamous Epithelial Cells 9 /hpf Urine Bacteria FEW /hpf Urine Mucus MANY /lpf Microscopic Urinalysis Comment CULTURE INDICATED MDM Medical Decision Making Medical Screen Exam Complete: Yes Emergency Medical Condition: Yes Medical Record Reviewed: Yes Differential Diagnosis Gastroenteritis, , UTI Narrative Course I have reviewed the patient's electronic medical record. Urine is positive Her exam is normal I gave her a dose of nausea medicine here She will follow-up with her CLINICAL NURSING INSTRUCTOR physician She has no vaginal bleeding or pelvic pain to suggest ectopic She looks clinically well and is asymptomatic. She has been chatting on her cell phone for much of the visit Urinalysis will be cultured. I would treat based on culture as she has a lot of squamous epithelial cells and no real urinary complaints Diagnosis Primary Impression: Nausea/vomiting in Additional Instructions: Follow-up with CLINICAL NURSING INSTRUCTOR physician Small frequent bland meals Med/Other Pt SpecificInfo: Other Scripts No Active Prescriptions or Reported Meds Disposition: 01 DISCHARGE HOME Condition: Stable Remy Gale MD March 07, 2018 20:09
== END 2018-03-07 20:48 | disposition home or self-care (01) ==
LOC: NEPD 17:50
DX: O21.9 Vomiting of pregnancy, unspecified (principal); Z3A.00 Weeks of gestation of pregnancy not specified
CPT/HCPCS: 81001; 84703; 87077; 87086; 87186; 99283

== ENCOUNTER 2018-03-24 18:38 | Emergency (ER) | payer OTHER ==
[~2018-03-24] VITALS: Ht 149.9 cm; Wt 55.0 kg
[2018-03-24 18:43] VITALS: BP 119/68; PULSE 110; RESP 20; TEMP 98.4; O2SAT 98
[2018-03-24] MEDS ORDERED: SODIUM CHLOR 0.9% 1000 ML INJ 1,000 ML IV ONE (19:06)
[2018-03-24] MEDS ORDERED: CEPH500C PO (19:11)
[2018-03-24] MEDS ORDERED: SODIUM CHLORIDE 0.9% FLUSH 10 ML FLUSH IVF PRN (19:15)
--- NOTE | 2018-03-24 19:30 | PD ---
HPI Chief Complaint: Chest Pain Time Seen by Provider: 19:01 Travel History International Travel<30 days: No Contact w/Intl Traveler<30days: No Traveled to known affect area: No History of Present Illness HPI Patient is a 22-year-old female presenting to emergency department for evaluation of nausea, vomiting, suprapubic pressure, chest pain. Patient states the nausea, vomiting and chest pain have been ongoing for several weeks, they are waxing and waning with exacerbations. Patient states this time it started last night she describes it as a burning sensation that is midsternal. Patient states she found out she is in February when she was here the last time has been nauseated since then. She denies any fever, chills, shortness of breath, diaphoresis, headache. Her pain is a 6 out of 10, unrelieved by anything. Patient has not tried any [id number] medications. PFSH Past Medical History Weight (Kg): 3 Gastrointestinal Disorders: Yes ("gallstones") Headaches: Yes (at times had a head injury with sutures December 2013) Psychiatric: Yes Immunizations Current: Yes ?: LMP: 02/27/18 : 3 Para: 1 Miscarriage: 1 Past Surgical History Cholecystectomy: Yes Coronary Artery Bypass Graft: No Other Surgery: No Social History Alcohol Use: No Tobacco Use: No Substance Use: No Allergies-Medications (Allergen,Severity, Reaction): Coded Allergies: No Known Allergies (Verified Allergy, Unknown, 01/30/18) Reported Meds & Prescriptions Reported Meds & Active Scripts Active Reported Cephalexin 500 Mg Cap 500 Mg PO Q12H Review of Systems Except as stated in HPI: all other systems reviewed are Neg General / Constitutional: No: Fever, Chills HENT: No: Headaches Cardiovascular: Positive: Chest Pain or Discomfort Gastrointestinal: Positive: Nausea, Vomiting, Abdominal Pain, Indigestion Genitourinary: No: Pelvic Pain, Discharge, Vaginal Bleeding Physical Exam Narrative GENERAL: Thin, well-developed, alert female. Presenting in no acute distress. SKIN: Warm and dry. HEAD: Atraumatic. Normocephalic. EYES: Pupils equal and round. No scleral icterus. No injection or drainage. ENT: No nasal bleeding or discharge. Mucous membranes pink and moist. NECK: Trachea midline. No JVD. CARDIOVASCULAR: Mildly tachycardic. No murmur noted. RESPIRATORY: No accessory muscle use. Clear to auscultation. Breath sounds equal bilaterally. GASTROINTESTINAL: Abdomen soft, mildly tender in suprapubic region, nondistended. Hepatic and splenic margins not palpable. Positive bowel sounds, no rebound, no guarding. MUSCULOSKELETAL: Extremities without clubbing, cyanosis, or edema. No obvious deformities. NEUROLOGICAL: Awake and alert. No obvious cranial nerve deficits. Motor grossly within normal limits. Five out of 5 muscle strength in the arms and legs. Normal speech. PSYCHIATRIC: Appropriate mood and affect; insight and judgment normal. Data Data Last Documented VS Vital Signs Date Time Temp Pulse Resp B/P (MAP) Pulse Ox O2 Delivery O2 Flow Rate FiO2 03/24/18 18:43 98.4 110 20 119/68 (85) 98 Orders Orders Complete Blood Count With Diff (03/24/18 19:06) Comprehensive Metabolic Panel (03/24/18 19:06) Urinalysis - C+S If Indicated (03/24/18 19:06) Beta Hcg (Quant/Titer) (03/24/18 19:06) Lipase (03/24/18 19:06) Iv Access Insert/Monitor (03/24/18 19:06) Ecg Monitoring (03/24/18 19:06) Oximetry (03/24/18 19:06) Sodium Chlor 0.9% 1000 Ml Inj (Ns 1000 M (03/24/18 19:06) Sodium Chloride 0.9% Flush (Ns Flush) (03/24/18 19:15) Electrocardiogram (03/24/18 19:06) Ckmb (Isoenzyme) Profile (03/24/18 19:06) Magnesium (Mg) (03/24/18 19:06) Troponin I (03/24/18 19:06) Urine Culture (03/24/18 20:15) Labs Laboratory Tests Test 03/24/18 19:43 03/24/18 20:15 White Blood Count 9.7 TH/MM3 Red Blood Count 4.45 MIL/MM3 Hemoglobin 13.4 GM/DL Hematocrit 38.8 % Mean Corpuscular Volume 87.2 FL Mean Corpuscular Hemoglobin 30.0 PG Mean Corpuscular Hemoglobin Concent 34.4 % Red Cell Distribution Width 12.6 % Platelet Count 211 TH/MM3 Mean Platelet Volume 8.5 FL Neutrophils (%) (Auto) 80.2 % Lymphocytes (%) (Auto) 11.3 % Monocytes (%) (Auto) 7.9 % Eosinophils (%) (Auto) 0.3 % Basophils (%) (Auto) 0.3 % Neutrophils # (Auto) 7.8 TH/MM3 Lymphocytes # (Auto) 1.1 TH/MM3 Monocytes # (Auto) 0.8 TH/MM3 Eosinophils # (Auto) 0.0 TH/MM3 Basophils # (Auto) 0.0 TH/MM3 CBC Comment DIFF FINAL Differential Comment Blood Urea Nitrogen 7 MG/DL Creatinine 0.47 MG/DL Random Glucose 80 MG/DL Total Protein 7.2 GM/DL Albumin 3.9 GM/DL Calcium Level 9.1 MG/DL Magnesium Level 1.8 MG/DL Alkaline Phosphatase 62 U/L Aspartate Amino Transf (AST/SGOT) 91 U/L Alanine Aminotransferase (ALT/SGPT) 121 U/L Total Bilirubin 1.0 MG/DL Sodium Level 138 MEQ/L Potassium Level 3.2 MEQ/L Chloride Level 101 MEQ/L Carbon Dioxide Level 23.8 MEQ/L Anion Gap 13 MEQ/L Estimat Glomerular Filtration Rate 204 ML/MIN Total Creatine Kinase 43 U/L Troponin I LESS THAN 0.02 NG/ML Lipase 106 U/L Human Chorionic Gonadotropin, Quant GREATER THAN [id number] MIU/ML Urine Color DARK-YELLOW Urine Turbidity CLOUDY Urine pH 6.0 Urine Specific [place] 1.033 Urine Protein 30 mg/dL Urine Glucose (UA) NEG mg/dL Urine Ketones 150 mg/dL Urine Occult Blood NEG Urine Nitrite NEG Urine Bilirubin NEG Urine Urobilinogen 8.0 MG/DL Urine Leukocyte Esterase LARGE Urine RBC 8 /hpf Urine WBC 34 /hpf Urine Squamous Epithelial Cells 41 /hpf Urine Bacteria MOD /hpf Urine Mucus MANY /lpf Microscopic Urinalysis Comment CULTURE INDICATED MDM Medical Decision Making Medical Screen Exam Complete: Yes Emergency Medical Condition: Yes Medical Record Reviewed: Yes Interpretation(s) Vital Signs Date Time Temp Pulse Resp B/P (MAP) Pulse Ox O2 Delivery O2 Flow Rate FiO2 03/24/18 18:43 98.4 110 20 119/68 (85) 98 Differential Diagnosis GERD versus UTI versus metabolic abnormality versus hyperemesis gravidarum versus other Narrative Course Patient is a 22-year-old female presenting with chest pain, nausea, vomiting. Patient was seen and evaluated on 07 March. At that time she had no urinary complaints but her urinalysis showed nitrite positive UTI, reflex culture was positive for Klebsiella pneumonia. Patient was not treated for this, she does have a prescription for Keflex which she states she was just given but has not begun to take it because of the nausea and vomiting. Additionally patient had a negative cardiac workup including a stress test in January 2018. At this time we will obtain repeat EKG, labs. Patient will be given a liter of IV fluids. Initial EKG shows sinus rhythm with sinus arrhythmia, heart rate is 72. CBC with no acute findings, chemistry with potassium of 3.2 or replacement ordered. UA is consistent with a urinary tract infection. Patient has a bottle of Keflex that was prescribed to her for a previous urinary tract infection that was diagnosed at the end of February. She has not taken this yet. The bottle is full, I saw it for myself. Patient was encouraged to start taking the Keflex and complete full course of antibiotics as prescribed. Urine culture shows susceptibility to ceftriaxone. Additionally patient's pain is likely unrelated to a cardiac issue due to the negative workup in January. Patient was encouraged to trial [id number] Tums or Pepcid as directed for indigestion. She was advised to follow-up with the [facility]. She was encouraged return to emergency department any new or worsening symptoms additionally she was advised to eat smaller more frequent meals, avoiding large meals, spicy or fried fatty foods, acidic foods. She verbalized understanding of these instructions. Patient stable for discharge. Diagnosis Primary Impression: Nausea and vomiting during Additional Impressions: Urinary tract infection Qualified Codes: N39.0 - Urinary tract infection, site not specified; R31.9 - Hematuria, unspecified Indigestion Referrals: [facility] 3 days Patient Instructions: General Instructions, Nausea and Vomiting in ( ED), at 11 to 14 Weeks (ED), Urinary Tract Infection in Women (ED) Additional Instructions: Follow-up with an [facility] within a week Take medications as needed and as directed for nausea Complete full course of antibiotics as prescribed Return to emergency department for any new or worsening symptoms You may trial [id number] Tums or Pepcid for indigestion Med/Other Pt SpecificInfo: Prescription(s) given Scripts Vit-Iron Carbonyl ( Plus Iron 29-1 mg) 29 Mg Iron-1 Mg Tab 1 TAB PO DAILY for Nutritional Supplement, #30 TAB 0 Refills Prov: Sarahi Salazar 03/24/18 Ondansetron Odt (Zofran Odt) 4 Mg Tab 4 MG SL Q6HR Y for Nausea/Vomiting, #5 TAB 0 Refills Prov: Sarahi Salazar 03/24/18 Disposition: 01 DISCHARGE HOME Condition: Stable Sarahi Salazar Mar 24, 2018 19:30
[2018-03-24 20:15] LABS: AUTOMATED NEUTROPHIL # 7.8 TH/MM3 (1.8-7.7); BASOPHIL % 0.3 % (0.0-2.0); EOSINOPHIL % 0.3 % (0.0-4.0); HEMATOCRIT 38.8 % (35.0-46.0); HEMOGLOBIN 13.4 GM/DL (11.6-15.3); LYMPH % 11.3 % (9.0-44.0); LYMPHOCYTE # 1.1 TH/MM3 (1.0-4.8); MEAN CELL VOLUME 87.2 FL (80.0-100.0); MEAN CORPUSCULAR HGB CONC 34.4 % (32.0-36.0); MEAN PLATELET VOLUME 8.5 FL (7.0-11.0); MONO % 7.9 % (0.0-8.0); MONOCYTE # 0.8 TH/MM3 (0-0.9); NEUT % 80.2 % (16.0-70.0); PLATELET COUNT 211 TH/MM3 (150-450); RED BLOOD COUNT 4.45 MIL/MM3 (4.00-5.30); RED CELL DISTRIBUTION WIDTH 12.6 % (11.6-17.2); WHITE BLOOD COUNT 9.7 TH/MM3 (4.0-11.0)
[2018-03-24 20:49] LABS: BACTERIA, URINE MOD /hpf; BLOOD, URINE NEG (NEG); GLUCOSE,URINE NEG (NEG); KETONE, URINE 150 mg/dL (NEG); MUCUS URINE MANY /lpf (OCC); NITRITE,URINE NEG (NEG); SQUAMOUS EPITHELIAL CELL URINE 41 /hpf (0-5); URINE COLOR DARK-YELLOW (YELLW/STRAW); URINE LEUKOCYTE ESTERASE LARGE (NEG)
[2018-03-24 20:50] LABS: BILIRUBIN, URINE NEG (NEG)
[2018-03-24 20:55] LABS: ALBUMIN 3.9 GM/DL (3.4-5.0); ALT (GPT) 121 U/L (9-42); AST (GOT) 91 U/L (16-38); BICARBONATE 23.8 MEQ/L (21.0-32.0); BLOOD UREA NITROGEN 7 MG/DL (7-18); CALCIUM 9.1 MG/DL (8.5-10.1); CHLORIDE 101 MEQ/L (98-107); CREATININE 0.47 MG/DL (0.50-1.00); GLOMERULAR FILTRATION RATE 204 ML/MIN (>89); GLUCOSE,RANDOM 80 MG/DL (74-106); MAGNESIUM 1.8 MG/DL (1.5-2.5); SODIUM (NA) 138 MEQ/L (136-145)
[2018-03-24 21:12] LABS: ALKALINE PHOSPHATASE 62 U/L (45-117); TOTAL PROTEIN 7.2 GM/DL (6.4-8.2); TROPONIN I LESS THAN 0.02 NG/ML (0.02-0.05)
[2018-03-24] MEDS ORDERED: ZOFR4TAB3 SL (21:42)
[2018-03-24] MEDS ORDERED: PREN29TA PO (21:42)
[2018-03-24] MEDS ORDERED: POTASSIUM CHLORIDE 10 MEQ CONTROLLED RELEASE TAB PO ONE (21:45)
[2018-03-24] MEDS ORDERED: ONDANSETRON ODT 4 MG TAB PO ONE (21:45)
--- NOTE | 2018-03-25 14:40 | EKG ---
Date Performed: 03/24/2018 Time Performed: 18:16:03 PTAGE: 22 years EKG: Sinus rhythm WITH SINUS ARRHYTHMIA WITH SHORT MD INTERVAL POSSIBLE RIGHT VENTRICULAR CONDUCTION DELAY BORDERLINE ECG PREVIOUS TRACING : 01/30/2018 22.11 Since the previous tracing, no significant change noted DOCTOR: Waldemar Figueroa Interpretating Date/Time 03/25/2018 14:37:29
== END 2018-03-24 22:12 | disposition home or self-care (01) ==
LOC: NEPE 18:38
DX: O21.9 Vomiting of pregnancy, unspecified (principal); O23.40 Unspecified infection of urinary tract in pregnancy, unspecified trimester; O26.899 Other specified pregnancy related conditions, unspecified trimester; K30 Functional dyspepsia; R07.9 Chest pain, unspecified; R94.31 Abnormal electrocardiogram [ECG] [EKG]; Z87.19 Personal history of other diseases of the digestive system; Z86.59 Personal history of other mental and behavioral disorders; Z3A.00 Weeks of gestation of pregnancy not specified
CPT/HCPCS: 80053; 81001; 82550; 83690; 83735; 84484; 84702; 85025; 87086; 93005; 96360; 99284; J7030

== ENCOUNTER 2018-09-24 04:10 | Inpatient (IN) ==
--- NOTE | 2018-09-24 04:31 | ED ---
History of Present Illness Primary Care Physician: No Primary Care Physician Chief Complaint: uterine contractions History of Present Illness: Patient is a 23 yo at 35 weeks presenting by EMS with strong contractions 2 minutes apart . Contractions woke her up about 1 hour before presenting. No vaginal bleeding or leaking. care with [facility]W. EDC 10/28/2018. Late entry to care. She states cervix was dilated 1cm when seen in July. Previous term uncomplicated delivery. Weeks Gestation:: 35 Para: 1 : 3 Review of Systems All other systems reviewed negative except as stated [facility] - History History Provided By: Patient - Medical / Surgical Hx Neg / Unobtainable Medical Problems Denied: Yes Surgical History: No Previous Surgery - Tobacco History Tobacco Use In Past 30 Days: No Smoking Status: Former smoker - Alcohol History How Often Do You Have a Drink Containing Alcohol: Never - Substance Use History Substance History: No History of Abuse Medications and Allergies Allergies Allergy/AdvReac Type Severity Reaction Status Date / Time No Known Allergies Allergy Verified 07/23/18 17:08 Home Medications Medication Instructions Recorded Confirmed Type PNV cmb#95-ferrous fumarate-FA 1 tab PO DAILY 07/23/18 07/23/18 History [] Exam Vital signs: Vital Signs 09/24/18 04:25 Temperature 97.8 F Pulse Rate 72 Respiratory Rate 16 Blood Pressure 131/78 Intake & Output 09/23/18 09/23/18 09/24/18 06:59 18:59 06:59 Weight 53.524 kg Narrative: GENERAL: Well-nourished, well-developed patient. SKIN: Warm and dry. HEAD: Normocephalic and atraumatic. EYES: No scleral icterus. No injection or drainage. ENT: No nasal drainage noted. Mucous membranes pink. Airway patent. NECK: Supple, trachea midline. No JVD. CARDIOVASCULAR: Regular rate and rhythm without murmurs, gallops, or rubs. RESPIRATORY: Breath sounds equal bilaterally. No accessory muscle use. BREASTS: Bilateral exam showed no masses , no retractions, no nipple discharge. ABDOMEN/GI: Abdomen soft, non-tender, bowel sounds present, no rebound, no guarding Gravid to [35] weeks size Fundal Height: [-] GENITOURINARY: External Genitalia: intact and normal in appearance BUS glands: [wnl] Cervix: [soft] Dilatation: [6cm] Effacement: [80%] Station: [-1] Presentation: [vertex] Membranes: [intact or ruptured] Uterine Contractions: [2 minutes] FHT's: Category: [1] Baseline: [130s] Reactive: [-] Variability: [moderate] Decels: [none] EXTREMITIES: No cyanosis or edema. BACK: Nontender without obvious deformity. No CVA tenderness. NEUROLOGICAL: Awake and alert. Motor and sensory grossly within normal limits. Five out of 5 muscle strength in all muscle groups. Normal speech. - Constitutional moderate distress (abdominal pain from contractions) - Routine HEENT Exam Head: Present: normocephalic Eye: Present: PERRL Results - Labs CBC & Chem 7: 09/24/18 04:50 Assessment and Plan - Diagnosis (1) 35 weeks gestation of Code(s): Z3A.35 - 35 weeks gestation of Status: Acute (2) labor in second trimester with delivery in third trimester Code(s): O60.13X0 - labor second trimester with delivery third trimester, not applicable or unspecified Status: Acute (3) Admitted to labor and delivery Code(s): Z78.9 - Other specified health status Status: Acute Discharge Plan - Physicians Team ED Provider: Janusz Dobson Primary Care Provider: Primary Care Ximena Cyr - Rxs /Orders / Referrals /Forms Prescriptions: No Action PNV cmb#95-ferrous fumarate-FA [] 28 mg iron- 800 mcg Tablet 1 tab PO DAILY - Discharge Instructions Print Language: Welsh
[2018-09-24] MEDS ORDERED: fentaNYL Citrate Inj 100 MCG/2 ML Ampul IV.PUSH PRN ×2 (04:51)
[2018-09-24] MEDS ORDERED: Penicillin G Potassium Inj 5,000,000 UNIT in Sodium Chloride 0.9% Inj 100 ML IV.SIG ONE (04:51)
[2018-09-24] MEDS ORDERED: Sodium Chlor 0.9% Inj 500 ML IV.SIG PRN (04:51)
[2018-09-24] MEDS ORDERED: Naloxone Inj 0.4 MG/ML Vial IV.PUSH PRN ×2 (04:51→08:22)
[2018-09-24] MEDS ORDERED: Sod Chloride 0.9% Inj 1,000 ML IV.CONT PRN (04:51)
[2018-09-24] MEDS ORDERED: Oxytocin 30 Units/500ml Premix 30 UNITS/500 ML BAG IV.SIG ONE (04:51)
[2018-09-24] MEDS ORDERED: Citric Acid/Sodium Citrate Liq 30 ML UDC PO SCH (05:00)
[2018-09-24 05:08] LABS: Baso # (Auto) 0.1 th/mm3 (0.0-0.2); Baso % (Auto) 0.6 % (0.0-2.0); Eos % (Auto) 0.4 % (0.0-4.0); Hematocrit 37.3 % (35.0-46.0); Hemoglobin 12.7 gm/dL (11.6-15.3); Lymph # (Auto) 2.6 th/mm3 (1.0-4.8); Lymph % (Auto) 18.5 % (9.0-44.0); Mean Corpuscular Volume 91.2 fL (80.0-100.0); Mono % (Auto) 7.5 % (0.0-8.0); Neut # (Auto) 10.3 th/mm3 (1.8-7.7); Platelet Count 238 th/mm3 (150-450); Red Cell Distribution Width 13.2 % (11.6-17.2); White Blood Count 14.1 th/mm3 (4.0-11.0)
[2018-09-24] MEDS ORDERED: fentaNYL 2MCG-Bupiv 0.125% Epi 150 ML EPIDURAL ONE (05:08)
--- NOTE | 2018-09-24 05:11 | P.HPOB ---
History of Present Illness Primary Care Physician: No Primary Care Physician Chief Complaint: uterine contractions History of Present Illness: Patient is a 23 yo at 35 weeks and 1 day who presented to OB ED via EMS with complaint of uterine contractions. Patient states contractions woke her up from sleep about 1 hour before presenting here. Patient was corinne every 2 minutes on arrival and rating pain as 10/10. She was 6cm dilated on exam. Patient had late entry into care with CFW. We do not have GBS status on file. Pt denies any significant medical history, Denies fevers, or vaginal bleeding or leaking. Active movements. Previous was uncomplicated resulting in term vaginal delivery. Weeks Gestation:: 35 Para: 1 : 3 - Inpatient Certification I certify that the inpatient services were ordered in accordance with Medicare regulations governing the order. This includes certification that hospital inpatient services are reasonable and necessary and in the case of services not specified as inpatient-only under 42 CFR 419.22(n), that they are appropriately provided as inpatient services in accordance to with the 2-midnight benchmark under 43 CFR 412.3(e) Estimated Total Length of Stay (Days): 3 Plans for Post Hospital Care: Home Review of Systems All other systems reviewed negative except as stated in HPI PMFSH - History History Provided By: Patient - Medical / Surgical Hx Neg / Unobtainable Medical Problems Denied: Yes - Tobacco History Tobacco Use In Past 30 Days: No Smoking Status: Former smoker - Alcohol History How Often Do You Have a Drink Containing Alcohol: Never - Substance Use History Substance History: No History of Abuse Medications and Allergies Active Medications: Active Medications Citric Acid/Sodium Citrate (Sodium Citrate/Citric Acid Liq) 30 ml PO [employer] [facility] Stop: 09/28/18 04:59 Fentanyl Citrate (Fentanyl Inj) 50 mcg IV.PUSH Q1H PRN PRN Reason: Pain Scale 3 - 5 Fentanyl Citrate (Fentanyl Inj) 100 mcg IV.PUSH Q1H PRN PRN Reason: PAIN SCALE 6 TO 10 Lactated Ringer's (Lr 1000 Ml Inj) 1,000 mls @ 125 mls/hr IV.CONT .Q8H [facility] Sodium Chloride (Ns Inj) 500 mls @ 1,000 mls/hr IV.SIG UNSCH PRN PRN Reason: SEE LABEL COMMENTS Sodium Chloride (Ns Inj) 1,000 mls @ 100 mls/hr IV.CONT .Q10H PRN PRN Reason: SEE LABEL COMMENTS Oxytocin (Pitocin 30 Units/Ns 500 Ml Premix) 30 units in 500 mls @ 999 mls/hr IV.SIG BOLUS ONE Stop: 09/24/18 05:21 Lactated Ringer's (Lr 1000 Ml Inj) 1,000 mls @ 3,000 mls/hr IV.SIG UNSCH PRN PRN Reason: compromise or epidural Penicillin G Potassium 5,000, (000 unit/ Sodium Chloride) 100 mls @ 200 mls/hr IV.SIG ONCE ONE Stop: 09/24/18 05:20 Lidocaine HCl (Xylocaine 1% Inj) 0.1 ml I-DERMAL PRN PRN PRN Reason: For IV start Stop: 09/27/18 04:50 Lidocaine HCl (Xylocaine 1% Inj) 10 ml INFILTRATN PRN PRN PRN Reason: For episiotomy repair Stop: 09/26/18 04:50 Mineral Oil (Muri-Lube Oil) 10 ml TOPICAL PRN PRN PRN Reason: PRN perineal massage Naloxone HCl (Narcan Inj) 0.1 mg IV.PUSH Q2M PRN PRN Reason: for opiate reversal Allergies Allergy/AdvReac Type Severity Reaction Status Date / Time No Known Allergies Allergy Verified 07/23/18 17:08 Home Medications Medication Instructions Recorded Confirmed Type PNV cmb#95-ferrous fumarate-FA 1 tab PO DAILY 07/23/18 09/24/18 History [] Exam Vital signs: Vital Signs 09/24/18 04:25 Temperature 97.8 F Pulse Rate 72 Respiratory Rate 16 Blood Pressure 131/78 Intake & Output 09/23/18 09/23/18 09/24/18 06:59 18:59 06:59 Weight 53.59 kg Narrative: GENERAL: Well-nourished, well-developed patient. SKIN: Warm and dry. HEAD: Normocephalic and atraumatic. EYES: No scleral icterus. No injection or drainage. ENT: No nasal drainage noted. Mucous membranes pink. Airway patent. NECK: Supple, trachea midline. No JVD. CARDIOVASCULAR: Regular rate and rhythm without murmurs, gallops, or rubs. RESPIRATORY: Breath sounds equal bilaterally. No accessory muscle use. BREASTS: Bilateral exam showed no masses , no retractions, no nipple discharge. ABDOMEN/GI: Abdomen soft, non-tender, bowel sounds present, no rebound, no guarding Gravid to [35] weeks size Fundal Height: [-] GENITOURINARY: External Genitalia: intact and normal in appearance BUS glands: [wnl] Cervix: [soft] Dilatation: [6cm] Effacement: [80%] Station: [-1] Presentation: [vertex] Membranes: [intact or ruptured] Uterine Contractions: [2 minutes] FHT's: Category: [1] Baseline: [130s] Reactive: [-] Variability: [moderate] Decels: [none] EXTREMITIES: No cyanosis or edema. BACK: Nontender without obvious deformity. No CVA tenderness. NEUROLOGICAL: Awake and alert. Motor and sensory grossly within normal limits. Five out of 5 muscle strength in all muscle groups. Normal speech. Results - Labs CBC & Chem 7: 09/24/18 04:50 Caprini VTE Risk Assessment Caprini VTE Risk Assessment: No/Low Risk (score <= 1) Caprini Risk Assessment Model: Point Value = 1 Point Value = 2 Point Value = 3 Point Value = 5 Age 41-60 Minor surgery BMI > 25 kg/m2 Swollen legs Varicose veins or History of unexplained or recurrent spontaneous Oral contraceptives or hormone replacement Sepsis (< 1 month) Serious lung disease, including pneumonia (< 1 month) Abnormal pulmonary function Acute myocardial infarction Congestive heart failure (< 1 month) History of inflammatory bowel disease Medical patient at bed rest Age 61-74 Arthroscopic surgery Major open surgery (> 45 min) Laparoscopic surgery (> 45 min) Malignancy Confined to bed (> 72 hours) Immobilizing plaster cast Central venous access Age >= 75 History of VTE Family history of VTE Factor V Leiden Prothrombin [id number] Lupus anticoagulant Anticardiolipin antibodies Elevated serum homocysteine Heparin-induced thrombocytopenia Other congenital or acquired thrombophilia Stroke (< 1 month) Elective arthroplasty Hip, pelvis, or leg fracture Acute spinal cord injury (< 1 month) Prophylaxis Regimen: Total Risk Factor Score Risk Level Prophylaxis Regimen 0-1 Low Early ambulation 2 Moderate Order ONE of the following: *Sequential Compression Device (SCD) *Heparin 5000 units SQ BID 3-4 Higher Order ONE of the following medications: *Heparin 5000 units SQ TID *Enoxaparin/Lovenox 40 mg SQ daily (WT < 150 kg, CrCl > 30 mL/min) *Enoxaparin/Lovenox 30 mg SQ daily (WT < 150 kg, CrCl > 10-29 mL/min) *Enoxaparin/Lovenox 30 mg SQ BID (WT < 150 kg, CrCl > 30 mL/min) AND/OR *Sequential Compression Device (SCD) 5 or more Highest Order ONE of the following medications: *Heparin 5000 units SQ TID (Preferred with Epidurals) *Enoxaparin/Lovenox 40 mg SQ daily (WT < 150 kg, CrCl > 30 mL/min) *Enoxaparin/Lovenox 30 mg SQ daily (WT < 150 kg, CrCl > 10-29 mL/min) *Enoxaparin/Lovenox 30 mg SQ BID (WT < 150 kg, CrCl > 30 mL/min) AND *Sequential Compression Device (SCD) Assessment and Plan - Diagnosis (1) 35 weeks gestation of Code(s): Z3A.35 - 35 weeks gestation of Status: Acute (2) labor in second trimester with delivery in third trimester Code(s): O60.13X0 - labor second trimester with delivery third trimester, not applicable or unspecified Status: Acute (3) Admitted to labor and delivery Code(s): Z78.9 - Other specified health status Status: Acute
[2018-09-24] MEDS ORDERED: Lidocaaine 1.5%/Epinephrine 1:200,000 PF Inj 5 ML Amp ONE (05:21)
[2018-09-24] MEDS ORDERED: Lidocaine PF 1% Inj 5 ML Vial ONE (05:21)
[2018-09-24] MEDS ORDERED: Lidocaine 1% Inj 50 ML Vial ONE (06:37)
[2018-09-24 06:44] LABS: Amorphous Sediment,Urine Rare /hpf; Bacteria,Urine Rare /hpf; Bilirubin,Urine Negative (Negative); Clarity,Urine Cloudy (Clear); Color,Urine Yellow (Yellw/Straw); Glucose,Urine (UA) Negative (Negative); Leukocyte Esterase,Urine Negative (Negative); Mucus,Urine Few /lpf (Occasional); Nitrite,Urine Negative (Negative); Specific Gravity,Urine 1.017 (1.002-1.035); Squamous Epithelial Cell,Urine 1 /hpf (0-5)
[2018-09-24 06:48] LABS: Amphetamine Urine With Conf Neg (Neg); Benzodiazepine Urine With Conf Neg (Neg); Cocaine Urine With Conf Neg (Neg); Opiates Urine With Conf Neg (Neg)
[2018-09-24 07:03] LABS: Cannabinoid Urine With Conf Pos (Neg)
--- NOTE | 2018-09-24 08:21 | P.OBDELI ---
Weeks Gestation: 35 Patient Started Active Labor: Yes Active Labor Start Date: 09/24/18 Active Labor Start Time: 03:00 Medical Induction of Labor: No Artificial Rupture of Membrane: Yes Artificial ROM Date: 09/24/18 Anesthesia: Epidural Episiotomy: none Vaginal Delivery: Normal Presentation: Occiput anterior Nuchal Cord: x1 Delayed Cord Clamping (45 sec): Yes Placenta: Spontaneous delivery, 3 vessel cord, Cord pH Laceration: None Estimated blood loss (mL): 200 : Male, Single Infant Male A Infant Delivery Date: 09/24/18 Weight: 2425 kg score (1 min): 8 score (5 min): 9
[2018-09-24] MEDS ORDERED: Acetaminophen 325 MG Tablet PO PRN (08:22)
[2018-09-24] MEDS ORDERED: Oxytocin 30 Units/500ml Premix 30 UNITS/500 ML BAG IV.CONT PRN (08:22)
[2018-09-24] MEDS ORDERED: Benzocaine 20% Top Spray 60 ML Can TOPICAL PRN (08:22)
[2018-09-24] MEDS ORDERED: Witch Hazel 50%/Glyderin 12.5% 40 Pad Jar RECTAL PRN (08:22)
[2018-09-24] MEDS ORDERED: Bisacodyl 10 MG Supp RECTAL PRN (08:22)
[2018-09-24] MEDS: Senna/Docusate Sodium 8.6/50 MG Tablet PO SCH ×2 (11:51→20:57)
[2018-09-24] MEDS ORDERED: Diphtheria/Tetanus/Pertussis Vaccine Inj 0.5 ML Syringe IM ONE (16:00)
[2018-09-24] MEDS ORDERED: Measles/Mumps/Rubella Vaccine Inj 0.5 ML Vial SQ ONE (16:00)
[2018-09-24] MEDS ORDERED: Zolpidem Tartrate 5 MG Tablet PO PRN (21:00)
[2018-09-25] MEDS: Senna/Docusate Sodium 8.6/50 MG Tablet PO SCH ×2 (08:23→20:17)
--- NOTE | 2018-09-25 08:47 | P.PNOB ---
Subjective Interval history: 23 year old female s/p at 35 wks gestation, PPD1. AFVSS. Patient reports she is feeling well. Bleeding is decreasing and pain is well- controlled. She is formula feeding and bonding well with baby. Ambulating without difficulties. She is tolerating a diet without nausea or vomiting. She has not had a bowel movement. She has passed gas. Denies chest pain, dysuria, shortness of breath, or calf pain. Objective Vital Signs/I&O: Vital Signs 09/24/18 08:45 09/24/18 09:00 09/24/18 09:15 Temperature 98.0 F Pulse Rate 61 53 L 53 L Respiratory Rate 18 18 18 Blood Pressure 117/69 121/77 127/75 09/24/18 10:49 09/24/18 11:10 09/24/18 20:00 Temperature 98.2 F 98.1 F Pulse Rate 58 L 50 L 59 L Respiratory Rate 18 18 Blood Pressure 111/78 124/76 108/76 09/25/18 07:00 Temperature 98.0 F Pulse Rate 65 Respiratory Rate 16 Blood Pressure 108/73 Result Diagrams: 09/24/18 04:50 Objective Remarks: GENERAL: Well-nourished, well-developed patient. CARDIOVASCULAR: Regular rate and rhythm without murmurs, gallops, or rubs. RESPIRATORY: Breath sounds equal bilaterally. No accessory muscle use. ABDOMEN/GI: Abdomen soft, non-tender. Fundus: Firm, non-tender at umbilicus. GENITOURINARY: Light to moderate bleeding. EXTREMITIES: No cyanosis or edema, non-tender, without signs of DVT. Medications and IVs: Active Medications Acetaminophen (Tylenol) 650 mg PO Q4H PRN PRN Reason: PAIN SCALE 1 TO 2 Al Hydroxide/Mg Hydroxide (Milk Of Magnesia Liq) 30 ml PO Q12H PRN PRN Reason: Mild Constipation Benzocaine (Americaine 20% [place]) 1 spray TOPICAL Q4H PRN PRN Reason: For Perineum Discomfort Bisacodyl (Dulcolax Supp) 10 mg RECTAL DAILY PRN PRN Reason: SEVERE CONSITIPATION Oxytocin (Pitocin 30 Units/Ns 500 Ml Premix) 30 units in 500 mls @ 100 mls/hr IV.CONT UNSCH PRN PRN Reason: Heavy bleeding Ibuprofen (Motrin) 800 mg PO Q8H PRN PRN Reason: For Cramping Last Admin: 09/24/18 22:52 Dose: 800 mg Lactulose (Lactulose Liq) 30 ml PO DAILY PRN PRN Reason: SEVERE CONSITIPATION Naloxone HCl (Narcan Inj) 0.1 mg IV.PUSH Q2M PRN PRN Reason: for opiate reversal Ondansetron HCl (Zofran Odt) 4 mg PO Q6H PRN PRN Reason: NAUSEA OR VOMITING Ondansetron HCl (Zofran Inj) 4 mg IV.PUSH Q6H PRN PRN Reason: VOMITING Last Admin: 09/24/18 10:31 Dose: 4 mg Senna/Docusate Sodium (Pamela-Colace) 1 tab PO BID [facility] Last Admin: 09/24/18 20:57 Dose: 1 tab Sennosides (Senokot) 17.2 mg PO Q12H PRN PRN Reason: Moderate Constipation Sodium Chloride (Ns Flush) 2 ml IV.FLUSH BID [facility] Last Admin: 09/24/18 20:57 Dose: 2 ml Sodium Chloride (Ns Flush) 2 ml IV.FLUSH PRN PRN PRN Reason: FLUSH AFTER USING IV ACCESS Witch Brit/Glycerin (Tucks Pads) 1 applicatio RECTAL QID PRN PRN Reason: HEMORRHOIDS Zolpidem Tartrate (Ambien) 5 mg PO HS PRN PRN Reason: SLEEP Assessment and Plan - Diagnosis (1) Vaginal delivery Code(s): O80 - Encounter for full-term uncomplicated delivery Status: Acute - Plan 23 yo female s/p , PPD 1 - AFVSS - Continue routine care - Motrin PRN pain - Encourage OOB - Pelvic rest x 6 wks. - Contraception: Depo shot - Anticipate D/C tomorrow manuel Brennan
[2018-09-25 19:52] VITALS: RESP 18
[2018-09-26 07:52] VITALS: BP 108/69; PULSE 56; TEMP 97.9
--- NOTE | 2018-09-26 08:09 | P.PNOB ---
Subjective Interval history: 23 year old female s/p at 35 wks gestation, PPD2. AFVSS. Patient reports she is feeling well. Bleeding is decreasing and pain is well- controlled. She is formula feeding and bonding well with baby. Ambulating without difficulties. She is tolerating a diet without nausea or vomiting. She has not had a bowel movement. She has passed gas. Denies chest pain, dysuria, shortness of breath, or calf pain. Objective Vital Signs/I&O: Vital Signs 09/25/18 19:50 09/26/18 07:51 Temperature 98.1 F 97.9 F Pulse Rate 65 56 L Respiratory Rate 18 18 Blood Pressure 104/69 108/69 Result Diagrams: 09/24/18 04:50 Objective Remarks: GENERAL: Well-nourished, well-developed patient. CARDIOVASCULAR: Regular rate and rhythm without murmurs, gallops, or rubs. RESPIRATORY: Breath sounds equal bilaterally. No accessory muscle use. ABDOMEN/GI: Abdomen soft, non-tender. Fundus: Firm, non-tender at umbilicus. GENITOURINARY: Light to moderate bleeding. EXTREMITIES: No cyanosis or edema, non-tender, without signs of DVT. Medications and IVs: Active Medications Acetaminophen (Tylenol) 650 mg PO Q4H PRN PRN Reason: PAIN SCALE 1 TO 2 Last Admin: 09/25/18 20:16 Dose: 650 mg Al Hydroxide/Mg Hydroxide (Milk Of Magnesia Liq) 30 ml PO Q12H PRN PRN Reason: Mild Constipation Benzocaine (Americaine 20% [place]) 1 spray TOPICAL Q4H PRN PRN Reason: For Perineum Discomfort Bisacodyl (Dulcolax Supp) 10 mg RECTAL DAILY PRN PRN Reason: SEVERE CONSITIPATION Oxytocin (Pitocin 30 Units/Ns 500 Ml Premix) 30 units in 500 mls @ 100 mls/hr IV.CONT UNSCH PRN PRN Reason: Heavy bleeding Ibuprofen (Motrin) 800 mg PO Q8H PRN PRN Reason: For Cramping Last Admin: 09/25/18 08:23 Dose: 800 mg Lactulose (Lactulose Liq) 30 ml PO DAILY PRN PRN Reason: SEVERE CONSITIPATION Naloxone HCl (Narcan Inj) 0.1 mg IV.PUSH Q2M PRN PRN Reason: for opiate reversal Ondansetron HCl (Zofran Odt) 4 mg PO Q6H PRN PRN Reason: NAUSEA OR VOMITING Ondansetron HCl (Zofran Inj) 4 mg IV.PUSH Q6H PRN PRN Reason: VOMITING Last Admin: 09/24/18 10:31 Dose: 4 mg Senna/Docusate Sodium (Pamela-Colace) 1 tab PO BID [facility] Last Admin: 09/25/18 20:17 Dose: Not Given Sennosides (Senokot) 17.2 mg PO Q12H PRN PRN Reason: Moderate Constipation Sodium Chloride (Ns Flush) 2 ml IV.FLUSH BID [facility] Last Admin: 09/25/18 20:17 Dose: Not Given Sodium Chloride (Ns Flush) 2 ml IV.FLUSH PRN PRN PRN Reason: FLUSH AFTER USING IV ACCESS Witch Brit/Glycerin (Tucks Pads) 1 applicatio RECTAL QID PRN PRN Reason: HEMORRHOIDS Zolpidem Tartrate (Ambien) 5 mg PO HS PRN PRN Reason: SLEEP Assessment and Plan - Diagnosis (1) Vaginal delivery Code(s): O80 - Encounter for full-term uncomplicated delivery Status: Acute - Plan 23 yo female s/p , PPD 2 - AFVSS - Continue routine care - Motrin PRN pain - Encourage OOB - Pelvic rest x 6 wks. - Contraception: Depo shot - Anticipate D/C today manuel Jung
[2018-09-26] MEDS ORDERED: medroxyPROGESTERone Acetate Inj 150 MG/ML Syringe IM ONE (08:10)
== END 2018-09-26 10:57 | disposition home or self-care (01) ==
LOC: HOBED 04:10 → H2E 04:42 → H1EA 10:59
PROVIDERS: ADMIT Obstetrics & Gynecology; ATTEND Obstetrics & Gynecology